=== PATIENT | male | born 1955 | race Caucasian/White ===

== ENCOUNTER → 2023-05-17 | Outpatient (CLI) | payer OTHER, SELFPAY ==
--- NOTE | 2023-05-17 09:03 | ECHOCS_ITS ---
Reason For Study: ISCHEMIC HEART DISEASE Procedure This was a 2D Doppler, Color Flow transthoracic echocardiogram. The study was technically difficult. Due to body habitus. Contrast injection was performed. Exam performed in department. Left Ventricle Mildly dilated left ventricle. Mild concentric left ventricular hypertrophy. The left ventricular ejection fraction is 40 %. Stage 2 diastolic dysfunction. Severe apical hypokinesis. Right Ventricle Normal right ventricle. Atria The left atrium is severely enlarged. Normal right atrium. Mitral Valve Mild mitral annular calcification. Mild (1+) mitral valve insufficiency. Tricuspid Valve Trivial tricuspid valve insufficiency. Right ventricular systolic pressure estimated to be 37 mmHg. Aortic Valve Trisinus/trileaflet aortic valve. Mild (1+) aortic valve insufficiency. Pulmonic Valve The pulmonic valve is not well visualized. Great Vessels Mildly dilated aortic root. Pericardium/Pleural No pericardial effusion. Medication 22 gauge I.V. with prn adaptor inserted into left arm. Diluted definity 3.0ml given slow IV push to enhance endocardial definition. MMode/2D Measurements & Calculations LVIDd: 5.3 cm IVSd: 1.3 cm Ao root diam: 3.7 cm LVIDs: 3.9 cm LVPWd: 1.3 cm RVDd: 3.4 cm FS: 27.1 % LAV(MOD-bp): 117.6 ml LVAd ap4: 46.7 cm2 SV(MOD-sp4): 101.9 ml LAV(MOD-bp) Indexed: 48.7 ml/m2 LVLd ap4: 10.5 cm LAV(MOD-sp2): 138.7 ml EDV(MOD-sp4): 166.3 ml LAV(MOD-sp4): 101.7 ml EDV(sp4-el): 176.6 ml LVAs ap4: 27.3 cm2 LVLs ap4: 9.2 cm ESV(MOD-sp4): 64.5 ml ESV(sp4-el): 68.2 ml EF(MOD-sp4): 61.2 % EF(sp4-el): 61.4 % SV(sp4-el): 108.3 ml LA A4 area: 26.6 cm2 LA dimension(2D): 5.0 cm RA A4 area: 18.9 cm2 TAPSE: 2.5 cm Time Measurements MV dec time: 0.30 sec Doppler Measurements & Calculations MV E max kyle: 77.2 cm/sec Lat Peak E' Kyle: 8.6 cm/sec Med Peak E' Kyle: 5.8 cm/sec MV A max kyle: 94.0 cm/sec E/E' lat: 8.9 E/E' med: 13.3 MV E/A: 0.82 MV V2 max: 103.6 cm/sec MV P1/2t max kyle: 96.4 cm/sec Ao V2 max: 132.7 cm/sec MV max P.3 mmHg MV P1/2t: 90.2 msec Ao max P.0 mmHg MV V2 mean: 65.3 cm/sec MV dec slope: 313.0 cm/sec2 Ao V2 mean: 90.2 cm/sec MV mean P.9 mmHg MVA(P1/2t): 2.4 cm2 Ao mean P.7 mmHg MV V2 VTI: 32.4 cm Ao V2 VTI: 32.2 cm AV (velocity ratio): 0.67 LV V1 max: 85.8 cm/sec PA V2 max: 91.1 cm/sec TR max kyle: 281.2 cm/sec LV V1 max P.9 mmHg PA V2 mean: 62.2 cm/sec TR max P.6 mmHg LV V1 mean P.6 mmHg LV V1 mean: 59.4 cm/sec LV V1 VTI: 21.7 cm ECHO/Echo Complete W/ Contrast Interpretation Summary Mildly dilated left ventricle. Mild concentric left ventricular hypertrophy. The left ventricular ejection fraction is 35-40 %. Stage 2 diastolic dysfunction. Severe apical hypokinesis. The left atrium is severely enlarged. Mild (1+) mitral valve insufficiency. Mild (1+) aortic valve insufficiency. Ordering Physician: Omari Donnelly Referring Physician: [facility] Performed By: Tiarra Lange, ABBY, RVT
[2023-05-17 11:21] LABS: Color, Urine Yellow (Yellow); Glucose, Dipstick Normal (Normal); Ketone-Dipstick Negative (Negative); Leukocyte Esterase-Dipstick Negative /ul (Negative); Nitrite-Dipstick Negative (Negative); Occult Blood-Urine Negative /ul (Negative); Protein-Dipstick 100 mg/dl (Negative); Specific Gravity, Urine 1.015 (1.002-1.030); Urine Bilirubin Dipstick Negative (Negative); Urine Clarity Clear (Clear); Urine Urobilinogen Normal (Normal)
[2023-05-17 12:05] LABS: ALB/GLOB Ratio 0.8 RATIO (0.9-2.4); AST(SGOT) 15 U/L (15-37); Alanine Aminotransfer ALT/SGPT 24 U/L (16-61); Albumin, Serum 3.3 g/dL (3.2-5.0); Alkaline Phosphatase 125 U/L (45-117); Anion Gap 7 (5-15); BUN 55 mg/dL (7-18); BUN/Creat Ratio 32.4 RATIO (10-20); Chloride 109 mmol/L (98-107); EST Glomerular Filtration Rate 43 mL/min (>60); Est Glom Filt Rate - Afr Amer 52 mL/min (>60); Globulin 4.2 g/dL (2.2-4.2); Glucose 106 mg/dL (74-106); Potassium 4.2 mmol/L (3.5-5.1); Protein, Total 7.5 g/dL (6.4-8.2); Sodium Level 142 mmol/L (136-145)
== END | disposition home or self-care (01) ==
LOC: CVS 08:55
PROVIDERS: Visit Provider Chiropractor
DX: I25.9 Chronic ischemic heart disease, unspecified (principal); E11.9 Type 2 diabetes mellitus without complications
CPT/HCPCS: 36415; 80053; 81002; 93306; Q9957; A4216; C8929